=== PATIENT | female | born 1960 | race Caucasian/White ===

== ENCOUNTER → 2016-05-27 | Outpatient (CLI) | payer BC ==
[~2016-05-27] MED LIST: ALBU1AER9 INH; AMIT25TA9 PO; ASPCH81X PO; CETI10TA10 PO; CYM60 PO; DICL1GEL12 TOP; LANS30CA12 PO; LEVO75TA5 PO; NMN5 PO; RANI150T3 PO; SALI0.6510 NAE; SYMIN INH; TOPI1CAP3 PO
[2016-05-27 12:52] LABS: BASO % 0.6 %; BASO ABS # 0.03 K/uL (0-0.2); COMPLETE YES; EOS % 5.2 %; HEMATOCRIT 41.3 % (37-47); LYMPH % 35.9 %; LYMPH ABS # 1.94 K/uL (1.2-3.4); MEAN CORPUSCULAR HEMOGLOBIN 29.4 pg (25-34); MEAN CORPUSCULAR HGB CONC 34.1 g/dl (32-36); MEAN PLATELET VOLUME 10.5 fL (7.4-10.4); NEUT % 51.3 %; PLATELET COUNT 197 K/uL (130-400); WHITE BLOOD COUNT 5.41 K/uL (4.8-10.8)
[2016-05-27 12:59] LABS: GLUCOSE,FASTING 109 mg/dl (70-99)
[2016-05-27 13:13] LABS: THYROID STIMULATING HORMONE < 0.005 uIu/ml (0.300-4.500)
[2016-05-27 13:14] LABS: ESTIMATED AVERAGE GLUCOSE 114 mg/dl; HA1C FLAG Normal (Normal)
== END | disposition home or self-care (01) ==
LOC: C.LABBFT 10:10
PROVIDERS: ATTEND Internal Medicine Endocrinology, Diabetes & Metabolism
DX: E06.3 Autoimmune thyroiditis (principal); R73.01 Impaired fasting glucose; E55.9 Vitamin D deficiency, unspecified

== ENCOUNTER → 2016-05-31 | Outpatient (CLI) | payer BC ==
--- NOTE | 2016-06-03 13:47 | MAMMOGRAPHY REPORT ---
BILATERAL DIGITAL SCREENING MAMMOGRAM TOMOSYNTHESIS WITH CAD: 05/31/2016 CLINICAL HISTORY: Routine screening. Patient has no complaints. TECHNIQUE: Breast tomosynthesis in addition to standard 2D mammography was performed. Current study was also evaluated with a Computer Aided Detection (CAD) system. COMPARISON: Comparison is made to exams dated: 05/29/2015 mammogram, 05/21/2013 mammogram, 05/26/2014 mammogram, 05/20/2012 mammogram, 05/15/2011 mammogram, and 05/14/2010 mammogram - [facility]. BREAST COMPOSITION: There are scattered areas of fibroglandular density in both breasts. FINDINGS: No suspicious masses, calcifications, or areas of architectural distortion are noted in e ither breast. There has been no significant interval change compared to prior exams. IMPRESSION: ACR BI-RADS CATEGORY 1: NEGATIVE There is no mammographic evidence of malignancy. A 1 year screening mammogram is recommended. The p atient will receive written notification of the results. Approximately 10% of breast cancers are not detected with mammography. A negative mammographic repor t should not delay biopsy if a clinically suggestive mass is present. Tiffany Pantoja M.D. ah/:05/31/2016 12:31:43 [employer] Processor: Sarahy METZ(Hayden)(M), [facility] letter sent: Normal 1/2 BI-RADS Code: ACR BI-RADS Category 1: Negative
== END | disposition home or self-care (01) ==
LOC: C.MAMM 08:42
PROVIDERS: ATTEND Obstetrics & Gynecology
DX: Z12.31 Encounter for screening mammogram for malignant neoplasm of breast (principal)

== ENCOUNTER 2016-10-02 11:51 | Emergency (ER) | payer BC ==
[~2016-10-02 11:51] MED LIST changes: -CYM60 PO; -DICL1GEL12 TOP; -TOPI1CAP3 PO
[2016-10-02 11:57] VITALS: TEMP 36.5
[2016-10-02] MEDS ORDERED: DICL1GEL12 TOP (12:18)
[2016-10-02] MEDS ORDERED: CYM60 PO (12:18)
[2016-10-02] MEDS ORDERED: TOPI1CAP3 PO (12:18)
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
[2016-10-02 14:33] VITALS: BP 129/70; PULSE 76; O2SAT 98
== END 2016-10-02 14:35 | disposition home or self-care (01) ==
LOC: C.EDB 11:53 → C.EDD 14:35
DX: S00.83XA Contusion of other part of head, initial encounter (principal); S20.212A Contusion of left front wall of thorax, initial encounter; S60.212A Contusion of left wrist, initial encounter; S16.1XXA Strain of muscle, fascia and tendon at neck level, initial encounter; V00.832A Motorized mobility scooter colliding with stationary object, initial encounter; Y92.007 Garden or yard of unspecified non-institutional (private) residence as the place of occurrence of the external cause; S80.12XA Contusion of left lower leg, initial encounter; S60.413A Abrasion of left middle finger, initial encounter; I71.2 Thoracic aortic aneurysm, without rupture; J45.909 Unspecified asthma, uncomplicated; M25.50 Pain in unspecified joint; G89.29 Other chronic pain; K31.84 Gastroparesis; E78.5 Hyperlipidemia, unspecified; I95.9 Hypotension, unspecified; M47.812 Spondylosis without myelopathy or radiculopathy, cervical region; Z86.73 Personal history of transient ischemic attack (TIA), and cerebral infarction without residual deficits; Z90.710 Acquired absence of both cervix and uterus; Z83.3 Family history of diabetes mellitus; Z79.82 Long term (current) use of aspirin

== ENCOUNTER → 2017-03-25 | Outpatient (CLI) | payer BC ==
[~2017-03-25] MED LIST changes: -ALBU1AER9 INH; +ALBUAER INH; -AMIT25TA9 PO; +ARMOUR THYROID PO; +BROM0.07; +CYM60 PO; +DICL1GEL12 TOP; +EZET10TA63 PO; +LIFI5DRO OPB; -NMN5 PO; +POLYSOL50; +PRDFOPS; +ROSU5TAB PO; +THY/30 PO; +TOPI1CAP27 PO
== END | disposition home or self-care (01) ==
LOC: C.LABSPEC 16:05
PROVIDERS: ATTEND Obstetrics & Gynecology
DX: R10.2 Pelvic and perineal pain (principal)

== ENCOUNTER → 2017-06-19 | Day surgery (SDC) | payer OTHER ==
[2017-06-02 09:02] VITALS: Ht 161.3 cm; Wt 59.5 kg
[~2017-06-19] VITALS: Ht 161.3 cm; Wt 59.5 kg
[~2017-06-19] MED LIST changes: -ARMOUR THYROID PO; -BROM0.07; -LEVO75TA5 PO; +LIDOCAINE HCL 2% 2 ML VIAL (20MG/ML) ONE; +MIDAZOLAM HCL 1 MG/ML 2ML VIAL ONE; +ONDANSETRON INJ 2 MG/ML 2 ML VIAL ONE; -POLYSOL50; -PRDFOPS; +PROPOFOL IV EMULSION 10 MG/ML 20 ML VIAL IV ONE; +SODIUM CHLORIDE 0.9% 500ML 500 ML IV ONE
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
--- NOTE | 2017-06-19 15:09 | Discharge Instructions ---
Endoscopy Patient Instructions Date / Procedure(s) Performed Jun 19, 2017. EGD Allergy Information Coded Allergies: Clarithromycin (Verified Allergy, Intermediate, MIGRAINE HEADACHES, ) Banana (Unverified Allergy, Unknown, MIGRAINES, 06/19/17) Codeine (Verified Allergy, Unknown, whole body RASH, hives, 06/19/17) Levofloxacin (Verified Allergy, Unknown, UNKNOWN, 06/19/17) Mirtazapine (Verified Allergy, Unknown, UNKNOWN, 06/19/17) Prochlorperazine (Verified Allergy, Unknown, "FACIAL DROOP/STROKE LIKE SYMPTOMS", 06/19/17) reaction occured when combined with Zoloft Sertraline (Verified Allergy, Unknown, "FACIAL DROOP/STROKE LIKE SYMPTOMS ", 06/19/17) reaction occured when combined with compazine Statins (Verified Allergy, Unknown, myalgias, 06/19/17) Sulfamethoxazole w/Trimethoprim (Verified Allergy, Unknown, HIVES, 06/19/17 ) Morphine (Verified Adverse Reaction, Intermediate, SEVERE VOMITING, ) Sumatriptan (Verified Adverse Reaction, Unknown, UNKNOWN, 06/19/17) Discharge Date / Findings Jun 19, 2017. Gastritis s/p biopsies Hiatal hernia Medication Instructions Stopped Medication(s): ASPIRIN 81MG 06/16/17 OK to resume all medications today as prescribed Reported Home Medications Medications Dose Route/Sig Max Daily Dose Days Date Category Xiidra (Lifitegrast) 5 % [place] 1 Drop OPB BID PRN 06/02/17 Reported [place] Nasal [place] (Saline) 0.65 % Spr 1 [place] DEVAN DIRECTED PRN 06/02/17 Reported Crestor (Rosuvastatin Calcium) 5 Mg Tab 5 Mg PO WK 06/02/17 Reported Proventil Hfa (Albuterol Sulfate) 108 Mcg/Act Aer 1-2 Puff INH DIRECTED PRN 06/02/17 Reported [place] Thyroid (Thyroid) 30 Mg Tab 2 Tab PO QAM 90 06/02/17 Reported Trokendi Xr (Topiramate) 100 Mg Cap 100 Mg PO QAM 10/02/16 Reported Voltaren 1% Top Gel (Diclofenac Sodium (Topical)) 1 % Gel 1 Appln TOP NEEDED 10/02/16 Reported Duloxetine HCl 60 Mg Cap 60 Mg PO QAM 10/02/16 Reported Prevacid (Lansoprazole) 30 Mg Capcr 30 Mg PO QAM 05/19/15 Reported Symbicort 160-4.5 Mcg/Act (Budesonide/Formoterol Fumarate) 60 Puffs/Inhaler Aero 2 Puffs INH BID 02/13/15 Reported Zyrtec (Cetirizine Hcl) 10 Mg Tab 10 Mg PO QPM PRN 02/13/15 Reported Aspirin Chewable (Aspirin) 81 Mg Chew 81 Mg PO QAM 02/13/15 Reported Zantac (Ranitidine HCl) 150 Mg Tab 150 Mg PO HS 11/22/14 Reported Provider Instructions Activity Restrictions - No exercising or heavy lifting for 24 hours. - Do not drink alcohol the day of the procedure. - Do not drive a car or operate machinery until the day after the procedure. - Do not make any important decisions or sign important papers in 24 hours after the procedure. Following Day: - Return to full activity which may include returning to work/school. Diet Start your diet with liquids and light foods (jello, soup, juice, toast). Then eat your usual diet if not nauseated. Treatment For Common After Affects For mild abdominal pain, bloating, or excessive gas: - Rest - Eat lightly - Lie on right side Follow-Up Information Follow-up with DR HORNE as scheduled Anesthesia Information What You Should Know You have had a procedure that required some medicine to reduce anxiety and discomfort. This treatment is called moderate sedation. After receiving the treatment, you may be sleepy, but you will be able to breathe on your own. The effects of the treatment may last for several hours. Follow these instructions along with Activity/Diet recommendations noted above: * Do NOT do anything where dizziness or clumsiness would be dangerous. * Rest quietly at home today, then you can be up and about tomorrow. * Have a responsible person stay with you the rest of today. * You may have had an I.V. today. If so, you may take the dressing off later today. Recommendations Call your doctor if: * Trouble breathing * Continuous vomiting for more than 24 hours * Temperature above 101 degrees * Severe abdominal pain or bloating * Pain not relieved by pain medicine ordered * There is increased drainage or redness from any incision * A large amount of rectal bleeding greater than 2-3 tablespoons. (If you had a polyp/s removed or have hemorrhoids, a small amount of blood - from the rectum is to be expected.) * You have any unanswered questions or concerns. IN THE EVENT OF A SERIOUS EMERGENCY, GO TO THE NEAREST EMERGENCY ROOM Your discharge instructions were prepared by provider Cornell Hendricks. Patient Instructions Signature Page Sarahy Hopkins Patient (or Guardian) Signature/Date: I have read and understand the instructions given to me by my caregivers. Caregiver/RN/Doctor Signature/Date: The above-named patient and/or guardian has received patient instructions on this date. + Original Patient Signature Page (only) stays with chart. Please make copy for patient.
--- NOTE | 2017-06-19 15:34 | GI REPORT ---
Procedure Date: 06/19/2017 2:50 PM Procedure: Upper GI endoscopy Indications: Epigastric abdominal pain, Gastro-esophageal reflux disease Medicines: Monitored Anesthesia Care Complications: No immediate complications. Estimated Blood Loss: Estimated blood loss: none. Procedure: Pre-Anesthesia Assessment: - Prior to the procedure, a History and Physical was performed, and patient medications and allergies were reviewed. The patient's tolerance of previous anesthesia was also reviewed. The risks and benefits of the procedure and the sedation options and risks were discussed with the patient. All questions were answered, and informed consent was obtained. Prior Anticoagulants: The patient has taken aspirin, last dose was 2 days prior to procedure. ASA Grade Assessment: III - A patient with severe systemic disease. After reviewing the risks and benefits, the patient was deemed in satisfactory condition to undergo the procedure. After obtaining informed consent, the endoscope was passed under direct vision. Throughout the procedure, the patient's blood pressure, pulse, and oxygen saturations were monitored continuously. The scope was introduced through the mouth, and advanced to the second part of duodenum. The upper GI endoscopy was accomplished without difficulty. The patient tolerated the procedure well. Findings: The examined esophagus was normal. A small hiatal hernia was present. Localized mild inflammation characterized by erythema was found in the gastric antrum. Biopsies were taken with a cold forceps for histology. The examined duodenum was normal. Impression: - Normal esophagus. - Small hiatal hernia. - Gastritis. Biopsied. - Normal examined duodenum. Recommendation: - Resume previous diet. - Continue present medications. - Await pathology results. - Return to primary care physician as previously scheduled. Cornell Hendricks, 06/19/2017 3:33:27 PM This report has been signed electronically. Note Initiated On: 06/19/2017 2:50 PM I attest to the content of the Intraoperative Record and orders documented therein, exceptions below
[2017-06-19 15:42] VITALS: BP 100/68; PULSE 68; O2SAT 98
--- NOTE | 2017-06-19 15:45 | Anesthesiology Progress Note ---
Anesthesia Post Op Note Date & Time Jun 19, 2017 at 15:45 Vital Signs Pain Intensity: 0 Vital Signs Past 12 Hours Date Time Temp Pulse Resp B/P (MAP) Pulse Ox O2 Delivery O2 Flow Rate FiO2 06/19/17 15:42 68 16 100/68 (79) 98 Room Air 06/19/17 15:27 69 16 101/62 (75) 96 Room Air 06/19/17 15:12 70 16 96/62 (73) 95 Room Air 06/19/17 13:56 36.8 74 16 110/72 (85) 99 Room Air Notes Mental Status: alert / awake / arousable, participated in evaluation Pt Amnestic to Procedure: Yes Nausea / Vomiting: adequately controlled Pain: adequately controlled Airway Patency, RR, SpO2: stable & adequate BP & HR: stable & adequate Hydration State: stable & adequate Anesthetic Complications: no major complications apparent
== END | disposition home or self-care (01) ==
LOC: C.GI 13:20
PROVIDERS: ATTEND Internal Medicine
DX: K29.70 Gastritis, unspecified, without bleeding (principal); K21.9 Gastro-esophageal reflux disease without esophagitis; K44.9 Diaphragmatic hernia without obstruction or gangrene; J45.909 Unspecified asthma, uncomplicated; E11.9 Type 2 diabetes mellitus without complications; Z86.73 Personal history of transient ischemic attack (TIA), and cerebral infarction without residual deficits; I25.10 Atherosclerotic heart disease of native coronary artery without angina pectoris; E78.00 Pure hypercholesterolemia, unspecified; Z98.84 Bariatric surgery status; Z79.82 Long term (current) use of aspirin; Z79.899 Other long term (current) drug therapy; Z98.818 Other dental procedure status; Z91.018 Allergy to other foods; Z88.1 Allergy status to other antibiotic agents; Z88.2 Allergy status to sulfonamides; Z88.6 Allergy status to analgesic agent; Z80.0 Family history of malignant neoplasm of digestive organs

== ENCOUNTER → 2017-06-26 | Outpatient (CLI) | payer OTHER ==
[~2017-06-26] MED LIST changes: -EZET10TA63 PO; -LIDOCAINE HCL 2% 2 ML VIAL (20MG/ML) ONE; -MIDAZOLAM HCL 1 MG/ML 2ML VIAL ONE; -ONDANSETRON INJ 2 MG/ML 2 ML VIAL ONE; -PROPOFOL IV EMULSION 10 MG/ML 20 ML VIAL IV ONE; -SODIUM CHLORIDE 0.9% 500ML 500 ML IV ONE
--- NOTE | 2017-06-27 07:22 | MAMMOGRAPHY REPORT ---
BILATERAL DIGITAL SCREENING MAMMOGRAM TOMOSYNTHESIS WITH CAD: 06/26/2017 CLINICAL HISTORY: Routine screening. TECHNIQUE: Breast tomosynthesis in addition to standard 2D mammography was performed. Current study was also evaluated with a Computer Aided Detection (CAD) system. COMPARISON: Comparison is made to exams dated: 05/31/2016 mammogram, 05/29/2015 mammogram, 05/26/2014 ma mmogram, 05/21/2013 mammogram, 05/20/2012 mammogram, and 05/15/2011 mammogram - [facility] nter. BREAST COMPOSITION: There are scattered areas of fibroglandular density in both breasts. FINDINGS: No suspicious masses, calcifications, or areas of architectural distortion are noted in ei ther breast. There has been no significant interval change compared to prior exams. Scattered bilate ral benign-appearing calcifications are not significantly changed. A linear scar marker denotes a sc ar on the left breast. Benign-appearing circumscribed mass in the left subareolar breast is stable c ompared to multiple prior exams. IMPRESSION: ACR BI-RADS CATEGORY 2: BENIGN There is no mammographic evidence of malignancy. A 1 year screening mammogram is recommended. The pa tient will receive written notification of the results. Approximately 10% of breast cancers are not detected with mammography. A negative mammographic report should not delay biopsy if a clinically suggestive mass is present. Tiffany Pantoja M.D. ah/:06/26/2017 15:11:05 [place] Clerk: Dipika METZ(R)(M), [facility] letter sent: Normal 1/2 BI-RADS Code: ACR BI-RADS Category 2: Benign
== END | disposition home or self-care (01) ==
LOC: C.MAMM 14:39
PROVIDERS: ATTEND Obstetrics & Gynecology
DX: Z12.31 Encounter for screening mammogram for malignant neoplasm of breast (principal)

== ENCOUNTER → 2017-10-29 | Day surgery (SDC) | payer OTHER ==
[~2017-10-29] VITALS: Ht 161.3 cm; Wt 59.4 kg
[2017-10-29] VITALS (8 sets, daily range): BP systolic 100–120; BP diastolic 68–79; PULSE 58–72; TEMP 36.4; O2SAT 98; Ht 161.3 cm; Wt 59.4 kg
[~2017-10-29] MED LIST changes: +ARMOUR THYROID PO; +BROM0.07; +POLYSOL50; +PRDFOPS; -THY/30 PO
[2017-10-29 09:07] LABS: ISTAT CREATININE 1.1 mg/dl (0.6-1.3); ISTAT IONIZED CALCIUM 1.27 mmol/l (1.12-1.32); ISTAT POTASSIUM 4.1 mEq/L (3.3-5.0)
[2017-10-29 09:25] LABS: OSMOLALITY,URINE 607 mOms/kg (500-800)
[2017-10-29 09:28] LABS: SODIUM RANDOM URINE 94 mEq/L
[2017-10-29 10:06] LABS: OSMOLALITY,URINE 717 mOms/kg (500-800)
[2017-10-29 10:08] LABS: SODIUM RANDOM URINE 128 mEq/L
[2017-10-29 11:26] LABS: OSMOLALITY,URINE 704 mOms/kg (500-800)
[2017-10-29 11:27] LABS: SODIUM RANDOM URINE 159 mEq/L
[2017-10-29 12:00] LABS: SODIUM RANDOM URINE 156 mEq/L
[2017-10-29 12:09] LABS: ISTAT CREATININE 0.9 mg/dl (0.6-1.3); ISTAT IONIZED CALCIUM 1.23 mmol/l (1.12-1.32); ISTAT POTASSIUM 4.1 mEq/L (3.3-5.0)
[2017-10-29 12:09] LABS: ISTAT CREATININE 0.9 mg/dl (0.6-1.3); ISTAT IONIZED CALCIUM 1.2 mmol/l (1.12-1.32); ISTAT POTASSIUM 4.1 mEq/L (3.3-5.0)
[2017-10-29 12:10] LABS: OSMOLALITY,URINE 690 mOms/kg (500-800)
[2017-10-29 13:16] LABS: OSMOLALITY,URINE 692 mOms/kg (500-800)
[2017-10-29 13:18] LABS: SODIUM RANDOM URINE 156 mEq/L
[2017-10-29 13:45] LABS: ISTAT CREATININE 0.9 mg/dl (0.6-1.3); ISTAT IONIZED CALCIUM 0.99 mmol/l (1.12-1.32); ISTAT POTASSIUM 4.2 mEq/L (3.3-5.0)
[2017-10-29 14:15] LABS: OSMOLALITY,URINE 693 mOms/kg (500-800)
[2017-10-29 14:16] LABS: SODIUM RANDOM URINE 145 mEq/L
[2017-10-29 14:58] LABS: ISTAT CREATININE 0.8 mg/dl (0.6-1.3); ISTAT IONIZED CALCIUM 1.21 mmol/l (1.12-1.32); ISTAT POTASSIUM 4.1 mEq/L (3.3-5.0)
[2017-10-29 14:58] LABS: ISTAT CREATININE 0.9 mg/dl (0.6-1.3); ISTAT IONIZED CALCIUM 1.1 mmol/l (1.12-1.32); ISTAT POTASSIUM 3.9 mEq/L (3.3-5.0)
[2017-10-29 15:16] LABS: OSMOLALITY,URINE 722 mOms/kg (500-800)
[2017-10-29 15:20] LABS: SODIUM RANDOM URINE 152 mEq/L
== END | disposition home or self-care (01) ==
LOC: C.MTU 07:31
PROVIDERS: ATTEND Internal Medicine Endocrinology, Diabetes & Metabolism
DX: R63.1 Polydipsia (principal)